=== PATIENT | female | born 1970 | race Caucasian/White ===

== ENCOUNTER 2019-07-09 06:43 | Emergency (ER) | payer OTHER ==
[~2019-07-09] VITALS: Ht 165.1 cm; Wt 99.8 kg
[~2019-07-09 06:43] MED LIST: PRILOSEC 20 MG20 MG PO; ZOFRAN ODT4 MG PO
[2019-07-09] MEDS ORDERED: NORCO 5-325 TA1 EAC1 PO (09:43)
[2019-07-09 09:57] VITALS: BP 152/109
== END 2019-07-09 09:58 | disposition home or self-care (01) ==
LOC: M.ERS 06:43
DX: S43.085A Other dislocation of left shoulder joint, initial encounter (principal); F31.9 Bipolar disorder, unspecified; Z88.6 Allergy status to analgesic agent; W18.39XA Other fall on same level, initial encounter; Y93.89 Activity, other specified; Y92.89 Other specified places as the place of occurrence of the external cause; Y99.8 Other external cause status